=== PATIENT | female | born 2000 | race Caucasian/White ===

== ENCOUNTER 2020-10-10 17:39 | Inpatient (IN) ==
[2020-10-10] MEDS ORDERED: Dinoprostone 10 MG VAG.SUPP VAGINAL ONE (18:24)
[2020-10-10] MEDS ORDERED: Lactated Ringers 1000 ml BAG 1,000 ML IV ONE (18:24)
[2020-10-10] MEDS ORDERED: Buffered Lidocaine 1% SYRIN 1 ml INTRADERM ONE (18:24)
[2020-10-10] MEDS ORDERED: Lactated Ringers 1000 ml BAG 1,000 ML IV SCH (19:00)
[2020-10-10 21:39] LABS: Rapid COVID-19 Molecular Undetected (Undetected)
[2020-10-10 21:44] LABS: Urine Benzodiazepine Screen None Detected (None Detect); Urine Cannabinoids Screen None Detected (None Detect); Urine Opiates Screen None Detected (None Detect)
[2020-10-11 11:16] LABS: ABS Eosinophils 0.1 10^3/ul (0-0.6); ABS Lymphocytes 2.4 10^3/ul (1.0-4.8); ABS Monocytes 0.8 10^3/ul (0-0.8); ABS Neutrophils 7.1 10^3/ul (1.5-7.7); Hematocrit 34 % (35-47); Hemoglobin 11.9 g/dL (12.0-16.0); Lymphocyte % 23.2 %; Mean Corpuscular HGB Conc 35 g/dL (31-36); Mean Corpuscular Hemoglobin 30 pg (27-31); Mean Corpuscular Volume 86 fL (80-97); Nucleated Red Blood Cells % 0.1; Platelet Count 261 10^3/uL (150-450); Red Blood Count 3.99 10^6 /uL (3.70-4.87); Red Cell Distribution Width 13 % (10-15); White Blood Count 10.5 10^3/uL (3.5-10.8)
[2020-10-11] MEDS: Oxytocin in LR 20 UNITS/1,000 ML BAG IVPB SCH ×2 (11:20→20:05)
[2020-10-11] MEDS ORDERED: Morphine 10 MG/ML VIAL (1 ml) IV ONE (13:44)
[2020-10-11] MEDS ORDERED: Promethazine INJ(RESTRICTED) 25 MG/ML 1 ml VIAL IV PRN (13:45)
[2020-10-11] MEDS ORDERED: Carboprost Tromethamine 250 mcg 1 ml VIAL ONE (19:07)
[2020-10-11] MEDS ORDERED: Glycerin ADULT 2.4 gm SUPP PR PRN (19:41)
[2020-10-11] MEDS ORDERED: Dibucaine 1% OINT 28.35 GM TUBE PR PRN (19:41)
[2020-10-11] MEDS ORDERED: Carboprost Tromethamine 250 mcg 1 ml VIAL IM ONE (19:41)
[2020-10-11] MEDS ORDERED: Methylergonovine 0.2 mg AMPULE 1 ml AMP IM ONE (19:54)
[2020-10-11] MEDS ORDERED: Lactated Ringers 1000 ml BAG 1,000 ML IV SCH (20:00)
[2020-10-11 20:34] LABS: Hematocrit 34 % (35-47); Hemoglobin 11.3 g/dL (12.0-16.0); Mean Corpuscular HGB Conc 33 g/dL (31-36); Mean Corpuscular Hemoglobin 29 pg (27-31); Mean Corpuscular Volume 88 fL (80-97); Mean Platelet Volume 7.5 fL (7.4-10.4); Platelet Count 363 10^3/uL (150-450); Red Cell Distribution Width 14 % (10-15); White Blood Count 24.2 10^3/uL (3.5-10.8)
[2020-10-11 20:45] LABS: Activated Partial Thrombo Time 22.4 seconds (26.0-38.0); Fibrinogen 352.7 mg/dL (110.8-404.3)
[2020-10-11 21:13] LABS: ABS Lymphocytes 2.1 10^3/ul (1.0-4.8); ABS Monocytes 1.3 10^3/ul (0-0.8); ABS Neutrophils 20.8 10^3/ul (1.5-7.7); Lymphocyte % 8.6 %
[2020-10-11] MEDS: Carboprost Tromethamine 250 mcg 1 ml VIAL ONE (21:13)
[2020-10-11] MEDS: Witch Hazel PAD JAR TOPICAL PRN (22:35)
[2020-10-12 07:26] LABS: ABS Lymphocytes 2.9 10^3/ul (1.0-4.8); ABS Monocytes 1.4 10^3/ul (0-0.8); ABS Neutrophils 11.9 10^3/ul (1.5-7.7); Eosinophil % 0.1 %; Hematocrit 27 % (35-47); Hemoglobin 9.4 g/dL (12.0-16.0); Lymphocyte % 17.9 %; Mean Corpuscular HGB Conc 35 g/dL (31-36); Mean Corpuscular Hemoglobin 30 pg (27-31); Mean Corpuscular Volume 87 fL (80-97); Platelet Count 199 10^3/uL (150-450); Red Blood Count 3.16 10^6 /uL (3.70-4.87); Red Cell Distribution Width 14 % (10-15); White Blood Count 16.3 10^3/uL (3.5-10.8)
[2020-10-13] MEDS: Carboprost Tromethamine 250 mcg 1 ml VIAL ONE (07:26)
[2020-10-13 07:49] VITALS: BP 116/64
[2020-10-13] MEDS: Witch Hazel PAD JAR TOPICAL PRN (09:39)
== END 2020-10-13 13:22 | disposition home or self-care (01) | DRG 560 ==
LOC: MCHOBOUT 17:39 → MCHOB 18:29
PROVIDERS: ADMIT Obstetrics & Gynecology; ATTEND Obstetrics & Gynecology

== ENCOUNTER 2023-03-21 18:10 | Inpatient (IN) ==
[2023-03-21] MEDS ORDERED: Lidocaine 1% VIAL 10 MG/ML 30 ML VIAL INJ PRN (19:46)
[2023-03-21] MEDS ORDERED: Dinoprostone 10 MG VAG.SUPP VAGINAL ONE (19:50)
[2023-03-21 22:06] LABS: ABS Basophils 0.1 10^3/uL (0.0-0.1); ABS Eosinophils 0.2 10^3/uL (0.0-0.5); ABS Lymphocytes 2.7 10^3/uL (1.0-4.8); ABS Monocytes 0.7 10^3/uL (0.0-0.9); ABS Neutrophils 6.6 10^3/uL (1.5-7.6); ABS Nucleated RBC 0.01 10^3/ul; Eosinophil % 1.8 %; Hematocrit 31.5 % (35-45); Hemoglobin 10.8 g/dL (11.5-14.3); Lymphocyte % 26.6 %; Mean Corpuscular Hemoglobin 26.8 pg (27-33); Mean Corpuscular Hgb Conc 34.1 g/dL (31-36); Mean Corpuscular Volume 78.5 fL (80-97); Mean Platelet Volume 6.6 fL (7.5-11.2); Nucleated Red Blood Cells % 0.1 %/100WBC (0.0-0.8); Platelet Count 272 10^3/uL (150-450); Red Blood Count 4.01 10^6/uL (3.63-4.92); Red Cell Distribution Width 15.2 % (12-17); White Blood Count 10.2 10^3/uL (3.8-11.8)
[2023-03-21 22:24] LABS: Urine Benzodiazepine Screen None Detected (None Detect); Urine Cannabinoids Screen None Detected (None Detect); Urine Opiates Screen None Detected (None Detect)
[2023-03-22] MEDS ORDERED: Oxytocin in LR 20,000 MILLI.UNIT/1,000 ML BAG IV SCH (09:55)
[2023-03-22] MEDS: Lactated Ringers 1000 ml BAG 1,000 ML IV ONE (10:10)
[2023-03-22] MEDS ORDERED: miSOPROStol 100 mcg TAB PO ONE ×3 (14:50→23:20)
[2023-03-22] MEDS ORDERED: Ondansetron 4 mg VIAL 2 MG/ML 2 ml VIAL IV PRN (23:22)
[2023-03-22] MEDS ORDERED: Promethazine INJ(RESTRICTED) 25 MG/ML 1 ml VIAL IV PRN (23:37)
[2023-03-23] MEDS: Lactated Ringers 1000 ml BAG 1,000 ML IV ONE (06:07)
[2023-03-23] MEDS: Oxytocin in LR 20,000 MILLI.UNIT/1,000 ML BAG IV SCH ×2 (06:07→18:03)
[2023-03-23] MEDS ORDERED: Lactated Ringers 1000 ml BAG 1,000 ML IV SCH ×2 (08:00→18:00)
[2023-03-23] MEDS ORDERED: Methylergonovine 0.2 mg AMPULE 1 ml AMP IM PRN (14:32)
[2023-03-23] MEDS ORDERED: Witch Hazel PAD JAR TOPICAL PRN (17:28)
[2023-03-23] MEDS ORDERED: Oxytocin 10 UNITS/ML 1 ML VIAL IM PRN (17:28)
[2023-03-23] MEDS ORDERED: Dibucaine 1% OINT 28.35 GM TUBE PR PRN (17:28)
[2023-03-24 07:45] LABS: ABS Eosinophils 0.1 10^3/uL (0.0-0.5); ABS Lymphocytes 2.5 10^3/uL (1.0-4.8); ABS Neutrophils 10.7 10^3/uL (1.5-7.6); Eosinophil % 0.4 %; Hematocrit 22.7 % (35-45); Hemoglobin 7.6 g/dL (11.5-14.3); Lymphocyte % 17.4 %; Mean Corpuscular Hemoglobin 26.1 pg (27-33); Mean Corpuscular Hgb Conc 33.5 g/dL (31-36); Mean Corpuscular Volume 77.8 fL (80-97); Mean Platelet Volume 6.6 fL (7.5-11.2); Platelet Count 229 10^3/uL (150-450); Red Blood Count 2.91 10^6/uL (3.63-4.92); Red Cell Distribution Width 14.7 % (12-17); White Blood Count 14.2 10^3/uL (3.8-11.8)
[2023-03-24] MEDS ORDERED: Iron Sucrose 200 MG in NS 0.9% 100 ml BAG 100 ML IVPB ONE (08:55)
[2023-03-24 20:20] VITALS: BP 118/54
[2023-03-25 07:00] LABS: ABS Basophils 0.1 10^3/uL (0.0-0.1); ABS Eosinophils 0.3 10^3/uL (0.0-0.5); ABS Lymphocytes 3.5 10^3/uL (1.0-4.8); ABS Monocytes 0.6 10^3/uL (0.0-0.9); ABS Neutrophils 6.6 10^3/uL (1.5-7.6); ABS Nucleated RBC 0.02 10^3/ul; Eosinophil % 2.4 %; Hematocrit 21.5 % (35-45); Hemoglobin 7.3 g/dL (11.5-14.3); Lymphocyte % 31.6 %; Mean Corpuscular Hemoglobin 26.6 pg (27-33); Mean Corpuscular Hgb Conc 34.1 g/dL (31-36); Mean Corpuscular Volume 78.1 fL (80-97); Mean Platelet Volume 6.5 fL (7.5-11.2); Nucleated Red Blood Cells % 0.2 %/100WBC (0.0-0.8); Platelet Count 269 10^3/uL (150-450); Red Blood Count 2.75 10^6/uL (3.63-4.92); Red Cell Distribution Width 14.8 % (12-17); White Blood Count 11.1 10^3/uL (3.8-11.8)
[2023-03-25] MEDS ORDERED: Iron Sucrose 200 MG in NS 0.9% 100 ml BAG 100 ML IVPB ONE (09:18)
== END 2023-03-25 14:00 | disposition home or self-care (01) | DRG 560 ==
LOC: MCHOBOUT 18:10 → MCHOB 19:58
PROVIDERS: ADMIT Midwife; ATTEND Midwife